=== PATIENT | male | born 1955 | race Caucasian/White ===

== ENCOUNTER 2017-07-28 17:17 | Emergency (ER) | payer MEDICAID ==
[~2017-07-28] VITALS: Ht 152.4 cm; Wt 56.2 kg
[2017-07-28 17:34] VITALS: Ht 152.4 cm; Wt 56.2 kg
[2017-07-28 19:42] VITALS: BP 142/86
== END 2017-07-28 19:42 | disposition home or self-care (01) ==
LOC: ED 17:17
DX: M25.512 Pain in left shoulder (principal); E11.9 Type 2 diabetes mellitus without complications
CPT/HCPCS: J1885